=== PATIENT | male | born 1990 | race Caucasian/White ===

== ENCOUNTER 2017-01-07 | Emergency (ER) | payer OTHER | END 2017-01-07 18:55 | disposition left against medical advice (07) | DX: Z53.21 Procedure and treatment not carried out due to patient leaving prior to being seen by health care provider (principal) ==

== ENCOUNTER → 2021-06-21 | Emergency (ER) | payer OTHER ==
[~2021-06-21] MED LIST: CLEOCIN HCL300 MG PO; IBUPROFEN600 MG PO; NORFLEX 100 MG100 MG PO; Viscous Lidocaine2% TOP
== END | disposition home or self-care (01) ==
LOC: ER1 17:56
DX: K02.9 Dental caries, unspecified (principal); K04.7 Periapical abscess without sinus; F17.290 Nicotine dependence, other tobacco product, uncomplicated
CPT/HCPCS: 99282